=== PATIENT | female | born 1965 | race Caucasian/White ===

== ENCOUNTER 2018-10-24 11:55 | Emergency (ER) | payer OTHER ==
[~2018-10-24] VITALS: Ht 160 cm; Wt 81.0 kg
[~2018-10-24 11:55] MED LIST: CALC200T3 PO; FAMO40OR2 PO; IBUP-1561 GTB; LEVO-86 PO; VIC PO
[2018-10-24 11:58] VITALS: BP 146/82; PULSE 90; RESP 18; Ht 160 cm; Wt 81.0 kg
--- NOTE | 2018-10-24 13:49 | ERD ---
ER Documentation Chief Complaint Chief Complaint pt is bib [id number] from grocery store with slip and fall L foot pain , -deform HPI 53-year-old female presents with complaint of left foot pain. States that she was walking in a grocery store when she slipped and fell. States that she fell she heard a crack. Has taken 2 ibuprofen already and refused more pain medication. She is unable to ambulate. Denies any numbness or tingling. Denies medical problems. Denies allergies to medications. ROS All systems reviewed and are negative except as per history of present illness. Medications Home Meds Active Scripts Hydrocodone/Acetaminophen ([place] 5-325 Tablet) 1 Each Tablet, 1 TAB PO Q6H PRN for PAIN, #15 TAB Prov:CAROLYNBERNYCHAYOSAMMY 10/24/18 Ibuprofen* (Motrin*) 600 Mg Tab, 600 MG PO Q6H PRN for PAIN AND OR ELEVATED TEMP, #30 TAB Prov:KIMMUNACHAYO ARRIETAEL 10/24/18 Reported Medications Acetaminophen/Hydrocodone (Vicodin) 1 Tab Tab, 1 TAB PO PRN 06/11/13 Ibuprofen* (Motrin*) 400 Mg Tab, 400 MG GTB PRN 06/11/13 Famotidine* (Famotidine*) 40 Mg/5 Ml Oral.susp, 40 MG PO DAILY 06/11/13 Calcium Carbonate (Tums) 200 Mg Tab.chew, 200 MG PO PRN 06/11/13 Levothyroxine Sodium* (Synthroid*) 100 Mcg Tablet, 100 MCG PO DAILY 04/06/13 Allergies Allergies: Coded Allergies: Penicillins (Verified Allergy, Unknown, 10/24/18) PMhx/Soc History of Surgery: Yes (CSECTION , APPENDECTOMY 1973, TONSILLECTOMY 1969) Anesthesia Reaction: No Hx Neurological Disorder: No Hx Respiratory Disorders: No Hx Cardiac Disorders: No Hx Psychiatric Problems: No Hx Miscellaneous Medical Probl: No Hx Alcohol Use: No Hx Substance Use: No Hx Tobacco Use: No FmHx Family History: No diabetes, No coronary disease, No other Physical Exam Vitals Vital Signs Date Temp Pulse Resp B/P (MAP) Pulse Ox O2 O2 Flow FiO2 Time Delivery Rate 10/24/18 98.3 90 18 146/82 100 11:58 (103) Physical Exam Const: No acute distress Head: Atraumatic Eyes: Normal Conjunctiva ENT: Normal External Ears, Nose and Mouth. Neck: Full range of motion. No meningismus. Resp: Clear to auscultation bilaterally Cardio: Regular rate and rhythm, no murmurs Abd: Soft, non tender, non distended. Normal bowel sounds Skin: No petechiae or rashes Back: No midline or flank tenderness Left foot: Foot is tender to palpation over the fourth and fifth meta tarsal area with overlying edema. There is no bony deformity noted. Overlying skin is intact. Compartments are soft and warm. There is normal cap refill. Neurovascularly intact. Distal sensation is intact. Neur: Awake and alert Psych: Normal Mood and Affect Procedures/MDM DIAGNOSTIC IMAGING REPORT Patient: MADDY FELTON : 1965 Age: 53 Sex: F MR #: [id number] DOS: 10/24/18 1337 Ordering MD: SAMMY ENCISO Location: [facility] Room/Bed: PROCEDURE: XR left Ankle series CLINICAL INDICATION: Pain. TECHNIQUE: AP, oblique, and lateral views of the left ankle were performed. COMPARISON: None available FINDINGS: Soft tissue swelling is noted of the left ankle. An acute, closed, intra- articular fracture of the base of the left fifth metatarsal is present. The ankle mortise appears intact. No radiodense foreign bodies are present. Normal mineralization is noted. IMPRESSION: 1. Acute, closed, intra-articular fracture of the left fifth metatarsal base. RPTAT: HDC .Brianda Ford MD, MD Date Time Electronically viewed and signed by .Brianda Ford MD, on 10/24/2018 14:21 .C/ CC: SAMMY ENCISO [id number] DIAGNOSTIC IMAGING REPORT Patient: MADDY FELTON : 1965 Age: 53 Sex: F MR #: [id number] DOS: 10/24/18 1337 Ordering MD: SAMMY ENCISO Location: [facility] Room/Bed: PROCEDURE: Left foot series CLINICAL INDICATION: Pain status post trauma TECHNIQUE: AP, lateral and oblique views of the left foot are obtained. COMPARISON: None available FINDINGS: Extensive soft tissue swelling is noted along the left fifth metatarsal. An acute, comminuted, left fifth metatarsal base fracture is present with intra- articular extension. No radiodense foreign bodies are present. Fusion of the left fifth distal interphalangeal joint is noted. Mild hallux valgus is present. IMPRESSION: 1. Acute, closed, comminuted, intra-articular fracture of the left fifth metatarsal base. 2. Extensive soft tissue swelling as described. 3. No radiodense foreign bodies RPTAT: HDC .Brianda Ford MD, Date Time Electronically viewed and signed by .Brianda Ford MD, on 10/24/2018 14:23 .C/ CC: SAMMY ENCISO [id number] MDM: X-ray showed fracture of the fifth metatarsal. Patient was given pain medication in the ER as well as place and [place] boot and given crutches. Splint Assessment: Neurovascularly intact post splint placement with good fit. I have low suspicion for neurovascular compromise, compartment syndrome, osteomyelitis, septic joint, or other emergent condition. Patient advised to follow-up with orthopedist within 24 hours. Patient understood this and agreed to do so. Patient discharged with medication for pain. Patient discharged with strict ER precautions. Patient advised to follow up with PMD. All questions answered at discharge. Departure Diagnosis: Primary Impression: Fracture of 5th metatarsal Encounter type: initial encounter Fracture type: closed Fracture alignment: nondisplaced Laterality: left Qualified Codes: S92.355A - Nondisplaced fracture of fifth metatarsal bone, left foot, initial encounter for closed fracture Condition: Stable SAMMY ENCISO October 24, 2018 13:49
[2018-10-24] MEDS ORDERED: IBUP-1542 PO (14:33)
[2018-10-24] MEDS ORDERED: HYDR-4011 PO (14:33)
== END 2018-10-24 15:59 | disposition home or self-care (01) ==
LOC: FTE 11:55
DX: S92.355A Nondisplaced fracture of fifth metatarsal bone, left foot, initial encounter for closed fracture (principal); W01.0XXA Fall on same level from slipping, tripping and stumbling without subsequent striking against object, initial encounter; Y92.512 Supermarket, store or market as the place of occurrence of the external cause
CPT/HCPCS: 73610; 73630; Z7502